=== PATIENT | female | born 1945 | race Caucasian/White ===

== ENCOUNTER → 2020-10-11 | Outpatient (CLI) | payer MEDICARE, BC ==
[~2020-10-11] MED LIST: ALBU8HFA2 INH
[2020-10-11 12:50] LABS: BASOPHILS PERCENT AUTO 1 % (0-2); EOSINOPHILS ABSOLUTE AUTO 0.16 K/mm3 (0.00-0.68); EOSINOPHILS PERCENT AUTO 2 % (0-6); Hematocrit 38.7 % (33.0-51.0); Hemoglobin 13.1 g/dL (11.5-16.0); IMMATURE GRAN ABSOLUTE AUTO 0.03 K/mm3 (0.00-0.10); IMMATURE GRAN PERCENT AUTO 0 % (0-1); LYMPHOCYTES ABSOLUTE AUTO 1.47 K/mm3 (0.84-5.20); LYMPHOCYTES PERCENT AUTO 17 % (21-46); MONOCYTES ABSOLUTE AUTO 0.59 K/mm3 (0.16-1.47); MONOCYTES PERCENT AUTO 7 % (4-13); Mean Corpuscular HGB Conc 33.9 g/dL (31.5-36.5); Mean Corpuscular Volume 98 fL (80-100); NEUTROPHILS ABSOLUTE AUTO 6.35 K/mm3 (1.96-9.15); NEUTROPHILS PERCENT AUTO 73 % (41-73); Platelet Count 221 K/mm3 (150-400); RDW Coefficient Variation 15.9 % (11.7-14.2); RDW Standard Deviation 57.2 fL (35.1-46.3); Red Blood Cell Count 3.97 M/mm3 (3.80-5.20)
[2020-10-11 13:09] LABS: Alanine Aminotransfer (ALT/SGP 67 U/L (12-78); Albumin, Blood 2.7 g/dL (3.4-5.0); Albumin/Globulin Ratio 0.6 (0.8-1.8); Alk Phos 323 U/L (40-126); Anion Gap 5 mmol/L (6-16); Aspartate Aminotrans (AST/SGOT 75 U/L (12-37); Bilirubin, Total 12.5 mg/dL (0.1-1.0); Blood Urea Nitrogen 17 mg/dL (8-24); CO2, Blood 27 mmol/L (21-32); Calcium, Blood 9.3 mg/dL (8.5-10.1); Chloride, Blood 105 mmol/L (98-108); Creatinine, Blood 0.85 mg/dL (0.40-1.00); Globulin, Blood 4.3 g/dL (2.2-4.0); Glomerular Filtration Rate >60 (60-); Glucose, Blood 106 mg/dL (70-99); Potassium, Blood 3.7 mmol/L (3.5-5.5); Sodium, Blood 137 mmol/L (136-145)
[2020-10-11 13:51] LABS: Mean Platelet Volume 13.8 fL (9.1-12.4)
[2020-10-11 19:47] LABS: Bilirubin, Direct 9.9 mg/dL (0.0-0.3); Bilirubin, Indirect 2.8 mg/dL (0.1-0.7); Bilirubin, Total 12.7 mg/dL (0.1-1.0)
== END ==
LOC: LAB SHORT 12:45 → LAB 12:45
PROVIDERS: Physician Assistant
DX: R17 Unspecified jaundice (principal); E80.6 Other disorders of bilirubin metabolism
CPT/HCPCS: 80053; 82247; 82248; 83690; 85025

== ENCOUNTER 2020-10-12 06:14 | Inpatient (IN) | payer MEDICARE, BC ==
[~2020-10-12] VITALS: Ht 157.5 cm; Wt 110.7 kg
[2020-10-12] MEDS ORDERED: ALBU8HFA2 INH (06:43)
[2020-10-12 07:27] LABS: BASOPHILS ABSOLUTE AUTO 0.02 K/mm3 (0.00-0.23); BASOPHILS PERCENT AUTO 0 % (0-2); EOSINOPHILS ABSOLUTE AUTO 0.01 K/mm3 (0.00-0.68); EOSINOPHILS PERCENT AUTO 0 % (0-6); Hematocrit 39.1 % (33.0-51.0); Hemoglobin 13.7 g/dL (11.5-16.0); IMMATURE GRAN ABSOLUTE AUTO 0.11 K/mm3 (0.00-0.10); IMMATURE GRAN PERCENT AUTO 1 % (0-1); LYMPHOCYTES ABSOLUTE AUTO 0.47 K/mm3 (0.84-5.20); LYMPHOCYTES PERCENT AUTO 4 % (21-46); MONOCYTES ABSOLUTE AUTO 0.14 K/mm3 (0.16-1.47); MONOCYTES PERCENT AUTO 1 % (4-13); Mean Corpuscular HGB 33.2 pg (26.0-34.0); Mean Corpuscular Volume 95 fL (80-100); Mean Platelet Volume 14.2 fL (9.1-12.4); NEUTROPHILS ABSOLUTE AUTO 11.63 K/mm3 (1.96-9.15); NEUTROPHILS PERCENT AUTO 94 % (41-73); Platelet Count 245 K/mm3 (150-400); RDW Coefficient Variation 15.7 % (11.7-14.2); RDW Standard Deviation 54.4 fL (35.1-46.3); Red Blood Cell Count 4.13 M/mm3 (3.80-5.20); White Blood Cell Count 12.38 K/mm3 (4.00-11.30)
[2020-10-12 07:34] LABS: Alanine Aminotransfer (ALT/SGP 80 U/L (12-78); Albumin, Blood 2.6 g/dL (3.4-5.0); Albumin/Globulin Ratio 0.5 (0.8-1.8); Alk Phos 321 U/L (50-136); Anion Gap 8 mmol/L (6-16); Aspartate Aminotrans (AST/SGOT 103 U/L (12-37); Blood Urea Nitrogen 14 mg/dL (8-24); Bun/Creatinine Ratio 17.1 (12.0-20.0); CO2, Blood 22 mmol/L (21-32); Calcium, Blood 9.2 mg/dL (8.5-10.1); Chloride, Blood 105 mmol/L (98-108); Creatinine, Blood 0.82 mg/dL (0.40-1.00); Globulin, Blood 4.8 g/dL (2.2-4.0); Glomerular Filtration Rate >60 (60-); Glucose, Blood 260 mg/dL (70-99); Potassium, Blood 4.5 mmol/L (3.5-5.5); Sodium, Blood 135 mmol/L (136-145); Total Protein, Blood 7.4 g/dL (6.4-8.2)
[2020-10-12 07:37] LABS: BAND PERCENT MAN 4 % (0-8); BASOPHILS ABSOLUTE MAN 0.12 K/mm3 (0.00-0.23); BASOPHILS PERCENT MAN 1 % (0-2); EOSINOPHILS PERCENT MAN 0 % (0-6); LYMPHOCYTES ABSOLUTE MAN 0.24 K/mm3 (0.84-5.20); LYMPHOCYTES PERCENT MAN 2 % (21-46); MONOCYTES PERCENT MAN 0 % (4-13); SEG NEUTROPHILS PERCENT MAN 93 % (41-73); TOTAL CELLS COUNTED 100
[2020-10-12 10:13] LABS: Source, Urine Clean Catch
[2020-10-12 10:20] LABS: Appearance, Urine Clear (Clear); Blood, Urine 1+ (Neg); Color, Urine Brown (P-Yellow); Glucose Qualitative, Urine 3+ (Neg); Ketones, Urine Neg (Neg); Leukocyte Esterase, Urine 1+ (Neg); Nitrite, Urine Neg (Neg); Protein, Urine 2+ (Neg); Specific Gravity, Urine 1.025 (1.003-1.022); Urobilinogen, Urine 2+ (Normal)
[2020-10-12 10:28] LABS: Squamous Epithelial Cells Few /hpf (Few)
[2020-10-12 10:31] LABS: Bacteria Few /hpf; Red Blood Cells, Urine 0-2 /hpf (0-2)
[2020-10-12 10:32] LABS: Transitional Epithelial Cells Rare /hpf (0-Rare)
[2020-10-12 11:16] LABS: SARS-Cov-2 (COVID-19) PCR, MMC NEGATIVE (NEGATIVE)
== END 2020-10-12 14:18 | disposition left against medical advice (07) | DRG 444 ==
LOC: ER 06:14 → ERHOLD 13:00
PROVIDERS: Emergency Medicine; ADMIT Internal Medicine
DX: K80.71 Calculus of gallbladder and bile duct without cholecystitis with obstruction (principal); K85.10 Biliary acute pancreatitis without necrosis or infection; J45.20 Mild intermittent asthma, uncomplicated; N83.201 Unspecified ovarian cyst, right side; G47.33 Obstructive sleep apnea (adult) (pediatric); Z53.29 Procedure and treatment not carried out because of patient's decision for other reasons; Z88.2 Allergy status to sulfonamides; Z88.5 Allergy status to narcotic agent; Z88.8 Allergy status to other drugs, medicaments and biological substances; Z88.6 Allergy status to analgesic agent; Z91.041 Radiographic dye allergy status
CPT/HCPCS: 36415; 74176; 76705; 80053; 81001; 82247; 82248; 83690; 85025; 87040; 87086; 96365; 96375; 96376; 99285-25; J2405; J2543; J2765; J3010; J7030; U0004